=== PATIENT | male | born 1995 | race Caucasian/White ===

== ENCOUNTER 2020-12-13 10:36 | Emergency (ER) | payer OTHER ==
[~2020-12-13] VITALS: Ht 165.1 cm; Wt 86.2 kg
[2020-12-13] MEDS ORDERED: ANXIETY MED (10:52)
[2020-12-13] MEDS ORDERED: DEPRESSION MED (10:52)
[2020-12-13] MEDS ORDERED: HYDROXYZINE HCL25 M2 PO (11:06)
[2020-12-13] MEDS ORDERED: TRAZODONE HCL50 MG PO (11:06)
[2020-12-13] MEDS ORDERED: SERTRALINE HCL100 MG PO (11:06)
[2020-12-13] MEDS ORDERED: MEDROLDOSEPACK PO (11:40)
[2020-12-13] MEDS ORDERED: MOBIC7.5 MG PO (11:40)
[2020-12-13] MEDS ORDERED: NORCO5 PO (11:40)
[2020-12-13 11:53] VITALS: BP 152/92
== END 2020-12-13 11:54 | disposition home or self-care (01) ==
LOC: M.ERS 10:36
DX: M54.5 Low back pain (principal); F17.210 Nicotine dependence, cigarettes, uncomplicated; Z88.0 Allergy status to penicillin

== ENCOUNTER 2020-12-26 23:48 | Emergency (ER) | payer OTHER ==
[~2020-12-26] VITALS: Ht 180.3 cm; Wt 99.8 kg
[~2020-12-26 23:48] MED LIST: ANXIETY MED; DEPRESSION MED; HYDROXYZINE HCL25 M2 PO; MEDROLDOSEPACK PO; MOBIC7.5 MG PO; NORCO5 PO; SERTRALINE HCL100 MG PO; TRAZODONE HCL50 MG PO
[2020-12-27] MEDS ORDERED: FLEXERIL PO (00:02)
[2020-12-27] MEDS ORDERED: GRALISE1 EAC1 PO (00:02)
[2020-12-27] MEDS ORDERED: BACTRIM DS TAB1 EACH PO (00:54)
[2020-12-27 01:17] VITALS: BP 148/64
== END 2020-12-27 01:18 | disposition home or self-care (01) ==
LOC: M.ERS 23:48
DX: S51.811A Laceration without foreign body of right forearm, initial encounter (principal); Z88.0 Allergy status to penicillin; W54.0XXA Bitten by dog, initial encounter; Y93.89 Activity, other specified; Y92.89 Other specified places as the place of occurrence of the external cause; Y99.8 Other external cause status